=== PATIENT | female | born 1970 | race Caucasian/White ===

== ENCOUNTER → 2018-06-05 10:39 | Outpatient (CLI) | payer OTHER, SELFPAY ==
--- NOTE | 2018-06-05 10:43 | DI.RAD.S_ITS ---
PROCEDURE: XR CHEST 2V INDICATIONS: cough TECHNIQUE: 2 views of the chest were acquired. COMPARISON: [facility], , CHEST 1 VIEW, 03/05/2015, 9:03. FINDINGS: Surgical changes and devices: None. Lungs and pleura: No pleural effusions or pneumothorax. Lungs are clear. Mediastinum: Mediastinal contours are normal. Heart size is normal. Bones and chest wall: No suspicious bony abnormalities. Soft tissues appear unremarkable. IMPRESSION: Negative chest. No acute cardiopulmonary process is evident. Dictated by: Bhupendra Sommer M.D. on 06/05/2018 at 10:11 Approved by: Bhupendra Sommer M.D. on 06/05/2018 at 10:11
== END ==
PROVIDERS: Family Provider Family Medicine; PCP Family Medicine; Visit Provider Physician Assistant
DX: R05 Cough (principal)
CPT/HCPCS: 71046

== ENCOUNTER → 2018-11-14 15:40 | Outpatient (CLI) | payer OTHER, SELFPAY | PROVIDERS: Family Provider Family Medicine; PCP Family Medicine; Visit Provider Hospitalist | DX: R19.7 Diarrhea, unspecified (principal) | CPT/HCPCS: 87045; 87177; 87899 ==

== ENCOUNTER → 2018-11-14 16:28 | Outpatient (CLI) | payer OTHER, SELFPAY ==
[2018-11-14 17:20] LABS: Alanine Aminotransferase 15 IU/L (9-52); Albumin 4.2 g/dL (3.5-5.0); Albumin Globulin Ratio 1.6 (1.0-2.8); Alkaline Phosphatase 60 U/L (38-126); Aspartate Aminotransferase 20 IU/L (14-36); BUN Creatinine Ratio 15.7 (6-22); Bilirubin Total 0.6 mg/dL (0.2-1.3); Blood Urea Nitrogen 11 mg/dL (7-17); Calcium 9.2 mg/dL (8.4-10.2); Carbon Dioxide 27 mmol/L (22-32); Chloride 105 mmol/L (98-107); Estimated Glomerular Filt Rate > 60.0 mL/min (>60); Globulin 2.7 g/dL (1.7-4.1); Glucose 86 mg/dL (70-100); HEMOLYSIS < 15 (0-50); Potassium 4.4 mmol/L (3.4-5.1); Sodium 140 mmol/L (137-145); Total Protein 6.9 g/dL (6.3-8.2)
== END ==
PROVIDERS: Family Provider Family Medicine; PCP Family Medicine; Visit Provider Hospitalist
DX: R19.7 Diarrhea, unspecified (principal)
CPT/HCPCS: 36415; 80053; 87045; 87177; 87899

== ENCOUNTER → 2018-11-15 15:25 | Outpatient (CLI) | payer OTHER, SELFPAY | PROVIDERS: Family Provider Family Medicine; PCP Family Medicine; Visit Provider Hospitalist ==

== ENCOUNTER 2019-03-15 13:58 | Day surgery (SDC) | payer OTHER, SELFPAY ==
[2019-03-15] VITALS (8 sets, daily range): BP systolic 100–112; BP diastolic 67–75; PULSE 69–88; RESP 10–20; TEMP 35.9–36.7; O2SAT 97–100; BMI 26.6
[2019-03-15] MEDS: SODIUM CHLORIDE 0.9% 1,000 ML 200 ML IV (14:42)
--- NOTE | 2019-03-15 14:42 | PM.HP.1 ---
History of Present Illness History of Present Illness Date Patient Seen: 03/15/19 Time Patient Seen: 14:42 Chief complaint: [id number] Colonoscopy Narrative: Patient presents for colorectal screening. They have never had any previous examination for such. On further history denies any recent gastrointestinal symptoms. No nausea, vomiting, abdominal pain, loss of appetite, unexplained weight loss, constipation, melena, hematochezia, or bright red blood per rectum. She was recently having diarrhea which has resolved with after eliminating gluten and dairy. Patient History Medical History Diabetes insipidus, nephrogenic (Chronic) Family & Social History Social History: household members spouse,children lives independently Yes Tobacco & Substance use: Smoking Status Never smoker Meds Home Medications and Allergies Home Medications Medication Instructions Recorded Confirmed Type fluoxetine 60 mg tablet 20 mg PO DAILY tab 11/14/18 03/15/19 History desmopressin 0.1 mg tablet 0.1 mg PO BID #270 tab 02/06/19 03/15/19 Rx Allergies Allergy/AdvReac Type Severity Reaction Status Date / Time diatrizoate sodium Allergy Severe ANAPHLACTIC Verified 02/06/19 11:30 [DIATRIZOATE SODIUM] diatrizoate meglumine Allergy Unknown Verified 02/06/19 11:30 [From RENOGRAFIN-60] nitrofurantoin Allergy Unknown Verified 02/06/19 11:30 [NITROFURANTOIN] sulfamethizole Allergy Unknown Verified 02/06/19 11:30 [SULFAMETHIZOLE] trimethobenzamide Allergy Unknown Verified 02/06/19 11:30 [TRIMETHOBENZAMIDE] IVP DYE Allergy Severe Anaphylaxis Uncoded 02/06/19 11:30 Review of Systems Review of Systems ROS Unobtainable: All systems reviewed & are unremarkable except as noted in HPI and below Exam Vital Signs (past 8 hours): - 03/15/19 14:28 Temperature 96.6 F L Pulse Rate 79 Respiratory Rate 15 Blood Pressure 107/72 Pulse Oximetry 97 Oxygen Delivery Method Room Air Narrative Exam Narrative: General-no acute distress, well nourished HEENT-moist mucous membranes, no scleral icterus Neck-supple, no lymphadenopathy Chest- non labored respirations, clear to auscultation bilaterally Cardiac-regular rate no peripheral edema Abdomen-soft, nontender, non distended Extremities-warm, well perfused Neurological-alert and oriented, no focal deficits Assessment & Plan Assessment and plan (1) Screening for colon cancer: Current visit: Yes Status: Acute Assessment & Plan narrative: The patient requires colorectal screening and colonoscopy is recommended. Technical details were discussed. Risks, benefits, alternatives explained. Risks including but not limited to myocardial infarction, aspiration, bleeding, pain, missed lesion, incomplete examination, need for further radiographic studies, colonic perforation, and need for major abdominal surgery were discussed. All questions were answered to their satisfaction, and they are in agreement with this plan.
[2019-03-15] MEDS: fentaNYL 250 MCG/5 ML INJ IV (15:11)
[2019-03-15] MEDS: MIDAZOLAM 5 MG/5 ML VIAL IV (15:11)
--- NOTE | 2019-03-15 15:23 | PM.OP.ENDO ---
Operative Date/Time/Diagnoses Date of procedure: 03/15/19 Time of procedure: 15:23 Pre-op diagnosis: Screening colonoscopy Post-op diagnosis: other (Diverticulosis) Procedure & Clinicians Study performed: Colonoscopy Same procedure as scheduled: Yes Indications: This is a 49-year-old female presents for screening colonoscopy. Surgeon: Vivek Mauro Procedure Notes SCOAP/Timeout: Performed Procedure in detail: Patient placed in left lateral decubitus position. Time out was performed. Procedural sedation was administered with Versed and Fentanyl. A rectal exam demonstrated no external hemorrhoids no internal masses. Colonoscopy scope was placed into the rectum and advanced through the colon to the cecum. The ileocecal valve was identified. The scope was then slowly withdrawn examining colon thoroughly in all directions. The colonoscopy was notable for the following 1. Sigmoid diverticulosis 2. Excellent prep quality Scope withdrawal time: 6 Sedation minutes: 27 Findings: diverticulosis Specimen(s): none sent Complications: none Impression: Diverticulosis Post-procedure Recommendations: Colonscopy in 10 years Disposition: same day surgery
== END 2019-03-15 16:28 | disposition home or self-care (01) ==
PROVIDERS: Family Provider Family Medicine; PCP Family Medicine; Visit Provider Surgery
PROC: 0DJD8ZZ Inspection of Lower Intestinal Tract, Via Natural or Artificial Opening Endoscopic (ICD-10-PCS; CPT 45378; principal; 2019-03-15 15:15)
DX: Z12.11 Encounter for screening for malignant neoplasm of colon (principal); K57.30 Diverticulosis of large intestine without perforation or abscess without bleeding
CPT/HCPCS: 45378; 99152; J2250; J3010

== ENCOUNTER → 2019-05-10 11:03 | Outpatient (CLI) | payer OTHER, SELFPAY ==
--- NOTE | 2019-05-10 11:04 | DI.CT.S_ITS ---
PROCEDURE: CT SINUS SCREEN WO CON INDICATIONS: Recurrent sinus infection TECHNIQUE: Noncontrast 3.0 mm axial images acquired from the frontal sinuses to the mid-sella, with coronal and sagittal reformats. For radiation dose reduction, the following was used: automated exposure control, adjustment of mA and/or kV according to patient size. COMPARISON: None. FINDINGS: Image quality: Excellent. Maxillary Sinuses: No bony remodeling or destruction. Sinuses are clear. Ethmoid Air Cells: No bony remodeling or destruction. Sinuses are clear. Sphenoid Sinuses: No bony remodeling or destruction. Sinuses are clear. Frontal Sinuses: No bony remodeling or destruction. Sinuses are clear. Ostiomeatal Complexes: Ostiomeatal complexes are patent. No Meghan cells. Miscellaneous: Visualized intra-orbital contents are normal. No sandrine bullosa or paradoxical turbinate curvature. No nasal septal deviation. IMPRESSION: No evidence of current active or chronic sinusitis. No morphologic anomaly is found that would explain recurrent sinusitis. Dictated by: Giancarlo Henderson M.D. on 05/10/2019 at 15:07 Approved by: Giancarlo Henderson M.D. on 05/10/2019 at 15:13
== END ==
PROVIDERS: PCP Family Medicine; Visit Provider Family Medicine
DX: J32.9 Chronic sinusitis, unspecified (principal)
CPT/HCPCS: 70486

== ENCOUNTER → 2019-07-27 07:54 | Outpatient (CLI) | payer OTHER, SELFPAY ==
--- NOTE | 2019-07-27 | DI.MG.S_ITS ---
BILATERAL DIGITAL SCREENING MAMMOGRAM 3D/2D WITH CAD: 07/27/2019 CLINICAL: Baseline exam. Routine screening. No prior exams were available for comparison. There are scattered fibroglandular elements in both breasts. Current study was also evaluated with a Computer Aided Detection (CAD) system. No significant masses, calcifications, or other findings are seen in either breast. IMPRESSION: NEGATIVE There is no mammographic evidence of malignancy. A 1 year screening mammogram is recommended. This exam was interpreted at Station ID: [id number]. NOTE: For mammograms, a report in lay terms will be sent to the patient. Approximately 15% of breast malignancies will not be visualized mammographically. In the management of a palpable breast mass, a negative mammogram must not discourage biopsy of a clinically suspicious lesion. Electronically Signed By: See curtis/jolene:07/27/2019 11:02:24 letter sent: Normal Exam ACR BI-RADS Category 1: Negative 3341F
== END ==
PROVIDERS: PCP Family Medicine; Referring Provider Family Medicine; Visit Provider Family Medicine
DX: Z12.31 Encounter for screening mammogram for malignant neoplasm of breast (principal)
CPT/HCPCS: 77063; 77067

== ENCOUNTER → 2019-10-29 09:08 | Outpatient (CLI) | payer OTHER, SELFPAY ==
[2019-10-30 01:54] LABS: COVID19 Sendout Not Detected (Not Detect)
== END ==
PROVIDERS: PCP Family Medicine; Visit Provider Physician Assistant
DX: Z01.812 Encounter for preprocedural laboratory examination (principal)
CPT/HCPCS: 87635

== ENCOUNTER → 2019-11-01 07:13 | Outpatient (CLI) | payer OTHER, SELFPAY ==
--- NOTE | 2019-11-01 08:22 | PM.TREADMILL ---
Cardiac Stress Test Report Referral & Results Date Patient Seen: 11/01/19 Time Patient Seen: 08:00 Requesting provider: Alireza Forman Indication: Chest pain Rest ECG: Normal sinus rhythm Procedure Note: Today following both written and verbal informed consent the patient was exercised according to a standard Rob protocol patient went for a total of 7 minutes 26 seconds achieving a maximum heart rate of 157 maximum systolic blood pressure of 160. This is approximately 10 point METs. Exercise was terminated at this point because of fatigue. Patient was also given Cardiolite through a previously started Hep-Lock IV by the nuclear equipment research engineer approximately 1 minute prior to the cessation of exercise. Normal hemodynamic response to exercise. No signs or symptoms of angina. Presenting symptom not reproduced with exertion. Average exercise capacity (ALEKSANDR +5% on active scale), but limited by orthopedic discomfort. No change in rhythm. Diffuse ST deviations in multiple leads that resolved rapidly with rest. Impression: Low probability for ischemia. Will await perfusion imaging. Please note: Actual ECG tracings can be found in the PACS system.
--- NOTE | 2019-11-03 12:55 | DI.NM.S_ITS ---
DATE OF SERVICE: 11/01/2019 PROCEDURE PERFORMED: Exercise treadmill stress and rest myocardial perfusion imaging with gating to assess ejection fraction and regional wall motion. ORDERING PROVIDER: Dr. Alireza Forman. INDICATIONS: The patient is a 49-year-old female with a history of pericarditis, who presents with chest tightness and a strong family history for CAD. EXERCISE TREADMILL TESTING: The patient was able to exercise for 7 minutes 26 seconds on a standard Rob protocol, although was more limited by orthopedic discomfort. Her ALEKSANDR was +5%. She had a normal heart rate and blood pressure response to exercise achieving a maximum heart rate of 157 bpm (98% of her predicted maximum). She had no exertional chest discomfort. Her resting ECG is normal. With exercise, there is slight upsloping ST depression that is nonspecific, and resolves promptly in recovery. There was no concerning ST-segment shifts for ischemia and there were no arrhythmias. At 6 minutes 25 seconds of exercise at a heart rate of 152 bpm, 26.1 millicuries of technetium-99m Myoview was injected and the patient was imaged 15 minutes later using a gated SPECT acquisition protocol. She returned the following day and was reinjected with an additional 24.4 millicuries of technetium-99m Myoview and was again imaged 30 minutes later with a gated SPECT acquisition protocol. FINDINGS: 1. Raw data: There are prominent breast shadows noted that clearly produce some attenuation artifact. There is also some subdiaphragmatic tracer activity on the resting images adjacent to the inferolateral segment that influences the interpretation. Otherwise, there are no concerning artifacts. Lung/heart ratio is normal at 0.30 with a normal TID ratio of 0.77. 2. Quantitated gated SPECT: Post-stress ejection fraction is estimated at 77% without any focal wall motion abnormality and, specifically, the anterior wall has normal contractility. Resting ejection fraction is estimated at 75% with an end-diastolic volume of 83 mL 3. Post-stress supine images shows a fairly normal myocardial perfusion pattern with a very subtle defect in the distal anterior wall in a pattern consistent with breast attenuation artifact, supported by its complete resolution on the prone images. There are no other perfusion defects. The resting images show an identical perfusion pattern without any areas of improvement. IMPRESSION: 1. Normal myocardial perfusion study. 2. Subtle fixed distal anterior wall defect that resolves on prone imaging, consistent with breast attenuation artifact. There is no significant evidence for myocardial ischemia or previous myocardial infarction. 3. Normal left ventricular systolic function without any focal wall motion abnormality. 4. Average exercise capacity without angina or ECG evidence of ischemia. Clarissa Sotelo - DONALD/debbie/dk doc#: [id number]/job#: [id number] dd: 11/03/2019 11:17:00 dt: 11/03/2019 12:32:00 DICTATING MD/COPIES TO: Ajith Whyte MD; ALY Gastelum; Alireza Forman MD COPIES MNE: JEANETTE; ;
== END ==
PROVIDERS: PCP Family Medicine; Referring Provider Family Medicine; Visit Provider Family Medicine
DX: R07.89 Other chest pain (principal); Z82.49 Family history of ischemic heart disease and other diseases of the circulatory system
CPT/HCPCS: 78452; 93016; 93017; 93018; A9502

== ENCOUNTER → 2019-11-29 07:58 | Outpatient (CLI) | payer OTHER, SELFPAY ==
--- NOTE | 2019-11-29 08:09 | DI.ECHO.S_ITS ---
Echocardiogram Report + + :Name: KAYLA MCKEON Study Date: 11/29/2019 Height: 66 in : :[facility] Weight: 165 lb : : Gender: Female BSA: 1.8 m2 : :: 1970 Age: 49 yrs BP: 110/64 mmHg: :Reason For Study: Chest Pain : :Ordering Physician: ORLANDO TOPerformed By: Krystyna Caicedo : :Referring: [place]LANDO TO : + + Interpretation Summary Left ventricular ejection fraction is estimated to be 55 +/- 5%. There is no significant valvular heart disease. Procedure: A two-dimensional transthoracic echocardiogram with color flow and Doppler was performed. There is no prior echocardiogram noted for this patient. The patient was in sinus rhythm with heart rates between 65-71 bpm during the exam. Left Ventricle: The left ventricle is normal in size and wall thickness. Left ventricular ejection fraction is estimated to be 55 +/- 5%. Left ventricular wall motion is normal. Diastolic parameters suggest probable normal left ventricular diastolic function and normal filling pressures. Right Ventricle: The right ventricle is normal in size and function. Atria: Both atria are normal in size. There is no Doppler evidence for an interatrial shunt. Mitral Valve: The mitral valve is normal in structure and function. There is trace mitral regurgitation. Aortic Valve: The aortic valve is not well visualized. The aortic valve is trileaflet. The aortic valve opens well. There is no aortic valve stenosis. No aortic regurgitation is present. Tricuspid Valve: The tricuspid valve is normal in structure and function. Pulmonary artery pressures cannot be estimated because of the lack of a measurable TR jet velocity but the IVC suggests a CVP of around 3 mmHg. There is a trace or physiologic amount of tricuspid regurgitation. Pulmonic Valve: The pulmonic valve is not well seen, but is grossly normal. There is no pulmonic valvular regurgitation. Great Vessels: The aortic root is normal size. The ascending aorta is normal in size. The IVC is of normal diameter and collapses greater than 50% with a sniff. This suggests a low right atrial pressure of 3 mm Hg. Pericardium/ Pleura There is no pericardial effusion. There is no pleural effusion. MMode/2D Measurements & Calculations LVIDd: 4.3 cm LVOT diam: 2.1 cm LVIDs: 3.0 cm Ao root diam: 3.3 cm FS: 31.4 % asc Aorta Diam: 2.9 cm EPSS: 0.71 cm Ao Arch Diam (Prox Trans): 2.4 cm IVSd: 0.69 cm LVPWd: 0.81 cm LV marin. diameter/BSA (cm/m^2): 2.3 LV sys. diameter/BSA (cm/m^2): 1.6 LA A2 area: 18.5 cm2 RA long axis: 4.4 cm LA A4 area: 13.5 cm2 RA area: 15.0 cm2 LA length (vol): 4.8 cm RA vol: 42.8 ml LA vol: 44.1 ml RA : 23.2 ml/m2 LA vol index: 23.9 ml/m2 IVC diam: 1.3 cm RVD1 (basal): 3.4 cm TAPSE: 2.5 cm Doppler Measurements & Calculations Ao V2 max: 125.2 cm/sec LVOT Max Moreno: 79.7 cm/sec Ao V2 mean: 88.0 cm/sec LV V1 max P.5 mmHg Ao max P.3 mmHg LV V1 VTI: 17.9 cm Ao mean P.5 mmHg CHAR(I,D): 2.1 cm2 Ao V2 VTI: 29.5 cm CHAR(V,D): 2.2 cm2 sev ratio: 0.61 CHAR indexed to BSA (cm^2/m^2): 1.2 MV E max moreno: 76.4 cm/sec PA V2 max: 68.3 cm/sec MV A max moreno: 55.8 cm/sec PA V2 mean: 46.5 cm/sec MV E/A: 1.4 PA mean P.96 mmHg Med Peak E' Moreno: 9.5 cm/sec PA pr(Accel): 13.9 mmHg E/E' med: 8.0 Lat Peak E' Moreno: 11.2 cm/sec E/E' lat: 6.8 E/e' average: 7.4 MV dec time: 0.17 sec SV(LVOT): 62.8 ml Reading Physician:02:51 PM
== END ==
PROVIDERS: PCP Family Medicine; Referring Provider Family Medicine; Visit Provider Family Medicine
DX: R07.9 Chest pain, unspecified (principal)
CPT/HCPCS: 93306

== ENCOUNTER → 2020-03-25 08:57 | Outpatient (CLI) | payer OTHER, SELFPAY ==
[2020-03-25 09:33] LABS: Hematocrit 41.6 % (36-46); Hemoglobin 14.5 g/dL (12.0-16.0); Mean Corpuscular HGB Conc 34.8 % (30-36); Mean Corpuscular Hemoglobin 29.6 PG (26-34); Mean Corpuscular Volume 85.1 fL (80-100); Platelet Count 203 X10^3/uL (150-400); Red Blood Cell Count 4.88 X10^6/uL (4.0-5.2); Red Cell Distribution Width 13.2 % (11.6-14.8); White Blood Cell Count 3.9 X10^3/uL (4.5-11.0)
[2020-03-25 10:25] LABS: Alanine Aminotransferase 12 IU/L (<35); Albumin 4.4 g/dL (3.5-5.0); Albumin Globulin Ratio 1.6 (1.0-2.8); Alkaline Phosphatase 66 U/L (38-126); Aspartate Aminotransferase 21 IU/L (14-36); BUN Creatinine Ratio 18.2 (6-22); Bilirubin Total 0.7 mg/dL (0.2-1.3); Blood Urea Nitrogen 14 mg/dL (7-17); Calcium 9.2 mg/dL (8.4-10.2); Carbon Dioxide 25 mmol/L (22-32); Chloride 104 mmol/L (98-107); Cholesterol 224 mg/dL (140-199); Estimated Glomerular Filt Rate > 60.0 mL/min (>60); Globulin 2.7 g/dL (1.7-4.1); Glucose 93 mg/dL (70-100); HDL Cholesterol 69 mg/dL (40-60); HEMOLYSIS < 15 (0-50); LDL Cholesterol Calculated 132 mg/dL (<100); Potassium 4.5 mmol/L (3.4-5.1); Sodium 135 mmol/L (137-145); Total Protein 7.1 g/dL (6.3-8.2); Triglycerides 117 mg/dL (35-150)
[2020-03-25 10:31] LABS: High Sensitivity CRP - Cardiac 2.4 mg/L (1.0-3.0)
[2020-03-25 10:56] LABS: TSH w/ Reflex to FT4 1.04 uIU/mL (0.47-4.68)
== END ==
PROVIDERS: PCP Registered Nurse Diabetes Educator; Referring Provider Registered Nurse Diabetes Educator; Visit Provider Registered Nurse Diabetes Educator
DX: Z00.00 Encounter for general adult medical examination without abnormal findings (principal); K58.9 Irritable bowel syndrome, unspecified; R19.7 Diarrhea, unspecified
CPT/HCPCS: 36415; 80053; 80061; 84443; 85027; 86140

== ENCOUNTER → 2020-07-09 15:24 | Outpatient (CLI) | payer OTHER, SELFPAY ==
[2020-07-09 16:26] LABS: Appearance Urine UA SL CLOUDY; Bilirubin Urine UA NEGATIVE (NEGATIVE); Color Urine UA YELLOW; Glucose Urine UA NEGATIVE (Negative); Ketones Urine UA NEGATIVE (NEGATIVE); Leukocyte Esterase Urine UA 1+ (NEGATIVE); Nitrite Urine UA NEGATIVE (Negative); Occult Blood Urine UA TRACE-LYSED (Negative); Protein Urine UA NEGATIVE (Negative); Urobilinogen Urine UA 0.2 E.U./dL (0.2)
[2020-07-09 16:42] LABS: pH Urine UA 5.5 (4.5-8.0)
[2020-07-09 16:44] LABS: Bacteria Urine Few (2-10); Culture Indicated Urine Specimen Cultured; RBC Urine 1-5/HPF (0-5/HPF); Squamous Epithelial Cell Urine 1-5 /HPF (0-5/HPF); Transitional Epi Cells Urine 5-10/HPF (0-5/HPF); WBC Urine 1-5/HPF (0-5/HPF)
== END ==
PROVIDERS: PCP Registered Nurse Diabetes Educator; Visit Provider Physician Assistant
DX: R30.0 Dysuria (principal)
CPT/HCPCS: 81001; 87077; 87086

== ENCOUNTER → 2020-07-28 17:15 | Outpatient (CLI) | payer OTHER, SELFPAY ==
--- NOTE | 2020-07-28 | DI.MG.S_ITS ---
BILATERAL DIGITAL SCREENING MAMMOGRAM 3D/2D WITH CAD: 07/28/2020 CLINICAL: Family history of breast cancer. Routine screening. Comparison is made to exam dated: 07/27/2019 [facility]. There are scattered fibroglandular elements in both breasts. Current study was also evaluated with a Computer Aided Detection (CAD) system. No significant masses, calcifications, or other findings are seen in either breast. There has been no significant interval change. IMPRESSION: NEGATIVE There is no mammographic evidence of malignancy. A 1 year screening mammogram is recommended. This exam was interpreted at Station ID: [id number]. NOTE: For mammograms, a report in lay terms will be sent to the patient. Approximately 15% of breast malignancies will not be visualized mammographically. In the management of a palpable breast mass, a negative mammogram must not discourage biopsy of a clinically suspicious lesion. Electronically Signed By: Tanner smith/jolene:07/29/2020 08:35:06 letter sent: Normal Exam ACR BI-RADS Category 1: Negative 3341F
== END ==
PROVIDERS: PCP Registered Nurse Diabetes Educator; Referring Provider Registered Nurse Diabetes Educator; Visit Provider Registered Nurse Diabetes Educator
DX: Z12.31 Encounter for screening mammogram for malignant neoplasm of breast (principal); Z80.3 Family history of malignant neoplasm of breast
CPT/HCPCS: 77063; 77067

== ENCOUNTER → 2020-08-04 07:51 | Outpatient (CLI) | payer OTHER, SELFPAY ==
[2020-08-04 08:58] LABS: Add Manual Diff / Slide Review NO; Basophils Absolute Auto 0 /uL (0-100); Basophils Percent Auto 0.7 % (0-2); Eosinophils Absolute Auto 100 /uL (0-450); Eosinophils Percent Auto 1.2 % (2-4); Hematocrit 41.2 % (36-46); Hemoglobin 14.2 g/dL (12.0-16.0); Lymphocytes Absolute Auto 1300 /uL (1100-4500); Lymphocytes Percent Auto 26.3 % (25-40); Mean Corpuscular HGB Conc 34.5 % (30-36); Mean Corpuscular Hemoglobin 29.6 PG (26-34); Mean Corpuscular Volume 85.8 fL (80-100); Monocytes Absolute Auto 200 /uL (0-900); Monocytes Percent Auto 4.5 % (3-14); Neutrophils Absolute Auto 3200 /uL (1500-7000); Neutrophils Percent Auto 67.3 % (50-75); Platelet Count 210 X10^3/uL (150-400); Red Cell Distribution Width 13.4 % (11.6-14.8); White Blood Cell Count 4.8 X10^3/uL (4.5-11.0)
[2020-08-04 09:09] LABS: BUN Creatinine Ratio 14.7 (6-22); Blood Urea Nitrogen 10 mg/dL (7-17); Calcium 8.7 mg/dL (8.4-10.2); Carbon Dioxide 22 mmol/L (22-32); Chloride 106 mmol/L (98-107); Estimated Glomerular Filt Rate > 60.0 mL/min (>60); Glucose 92 mg/dL (70-100); HEMOLYSIS < 15 (0-50); Potassium 3.8 mmol/L (3.4-5.1); Sodium 137 mmol/L (137-145)
== END ==
PROVIDERS: PCP Registered Nurse Diabetes Educator; Referring Provider Registered Nurse Diabetes Educator; Visit Provider Registered Nurse Diabetes Educator
DX: D72.819 Decreased white blood cell count, unspecified (principal); E23.2 Diabetes insipidus
CPT/HCPCS: 36415; 80048; 85025

== ENCOUNTER → 2021-03-03 11:52 | Outpatient (CLI) | payer OTHER, SELFPAY ==
[2021-03-03 12:45] LABS: COVID19 -Nasal RAPID Negative (Negative)
== END ==
PROVIDERS: PCP Registered Nurse Diabetes Educator; Referring Provider Nurse Practitioner Family; Visit Provider Nurse Practitioner Family
DX: Z20.822 Contact with and (suspected) exposure to COVID-19 (principal)
CPT/HCPCS: 87635